=== PATIENT | female | born 1950 | race Caucasian/White ===

== ENCOUNTER 2017-04-27 10:20 | Day surgery (SDC) | payer MEDICARE ==
[~2017-04-27] VITALS: Ht 160 cm; Wt 85.0 kg
[~2017-04-27 10:20] MED LIST: COZA50TA PO; CYCL-36 PO; METH2.5 PO; PRED-1 PO; VITB12; ZOCO40TA PO
[2017-04-27 10:39] VITALS: BP 126/76; PULSE 87; RESP 20; TEMP 98.2; O2SAT 97
[2017-04-27] MEDS ORDERED: METH2.5T PO (10:42)
[2017-04-27] MEDS ORDERED: VITA100021 SL (10:42)
[2017-04-27] MEDS ORDERED: FOLI800T PO (10:42)
[2017-04-27] MEDS ORDERED: TYLE325T PO (10:42)
[2017-04-27] MEDS ORDERED: LOSA50TA PO (10:42)
[2017-04-27] MEDS ORDERED: ALPR0.5T3 PO (10:42)
[2017-04-27] MEDS ORDERED: SIMV40TA PO (10:42)
[2017-04-27] MEDS ORDERED: CHOL5000 PO (10:42)
[2017-04-27] MEDS ORDERED: PRED5TAB PO (10:42)
[2017-04-27] MEDS ORDERED: SODIUM CHLOR 0.9% 1000 ML IV SCH (10:45)
[2017-04-27] MEDS ORDERED: SODIUM CHLORIDE 2 ML FLUSH PRN IV FLUSH (10:45)
[2017-04-27 11:16] LABS: APTT (PATIENT) 22.4 SEC (24.3-30.1); INTERNATIONAL NORMALIZED RATIO 1.1 RATIO; PROTHROMBIN TIME - PATIENT 10.7 SEC (9.8-11.6)
[2017-04-27 11:20] LABS: AUTOMATED NEUTROPHIL # 4.1 TH/MM3 (1.8-7.7); BASOPHIL # 0.1 TH/MM3 (0-0.2); EOSINOPHIL # 0.1 TH/MM3 (0-0.4); EOSINOPHIL % 1.4 % (0.0-4.0); HEMATOCRIT 24.7 % (35.0-46.0); LYMPH % 26.4 % (9.0-44.0); LYMPHOCYTE # 1.7 TH/MM3 (1.0-4.8); MEAN CELL VOLUME 108.8 FL (80.0-100.0); MEAN CORPUSCULAR HEMOGLOBIN 40.1 PG (27.0-34.0); MONO % 8.9 % (0.0-8.0); NEUT % 62.3 % (16.0-70.0); PLATELET COUNT 314 TH/MM3 (150-450); RED BLOOD COUNT 2.27 MIL/MM3 (4.00-5.30); WHITE BLOOD COUNT 6.6 TH/MM3 (4.0-11.0)
[2017-04-27 11:21] LABS: HEMO FLAGS AUTO DIFF; MEAN CORPUSCULAR HGB CONC 36.8 % (32.0-36.0)
[2017-04-27 11:47] LABS: SCAN/DIFF AUTO DIFF CONFIRMED
[2017-04-27] MEDS ORDERED: LIDOCAINE 1%/EPINEPHrine 1:100,000 SOLN 20 ML VIAL ONE (13:01)
[2017-04-27] MEDS ORDERED: MIDAZOLAM HCL 2 MG/2 ML VIAL ONE (13:21)
[2017-04-27 14:50] VITALS: BP 103/52; PULSE 81; RESP 18; TEMP 98; O2SAT 93
[2017-04-27 15:05] VITALS: BP 107/55; PULSE 80; RESP 18; O2SAT 93
--- NOTE | 2017-04-27 15:08 | PD.RAD ---
Post CT Procedure Prog Note Pre Procedure Diagnosis: (1) Anemia Post Procedure Diagnosis: (1) Anemia Procedure Date: Apr 27, 2017 Supervising Radiologist: Randell ePng Anesthesia: Local, Analgesia, Conscious Sedation Plan of Activity Patient to Unit: ROPU Patient Condition: Good See PACS Report for procedural detail/treatment Biopsy Imaging Guidance: CT Biopsy Procedure: Bone Marrow Specimen: Core Biopsy, Fine Needle Aspirate Fluid Description: Randell Billy MD Apr 27, 2017 15:08
[2017-04-27] MEDS ORDERED: BUPIVACAINE/EPINEPHRINE 0.25% PF 30 ML VIAL ONE (15:16)
[2017-04-27] MEDS ORDERED: LIDOCAINE HCL 1% 50 ML VIAL ONE (15:17)
[2017-04-27 15:22] LABS: BONE MARROW PROCESSING COMPLETE; IRON STAIN DONE; JENNER GIEMSA STAIN DONE
[2017-04-27 15:35] VITALS: BP 104/57; PULSE 77; RESP 18; O2SAT 94
[2017-04-27 16:05] VITALS: BP 106/62; PULSE 83; RESP 18; O2SAT 97
--- NOTE | 2017-04-27 16:36 | RADRPT ---
EXAM DATE/TIME: 04/27/2017 13:59 [facility] COMPARISON: No previous studies available for comparison. INDICATIONS : Anemia. SEDATION TIME: 30 minutes BIOPSY SITE: Left iliac wing MEDICATION(S): 1.) 4 mg midazolam (Versed) IV 2.) 200 mcg fentanyl (Sublimaze) IV DEVICE(S): 1.) 11 gauge Bone marrow biopsy needle MEDICAL HISTORY : Rheumatoid arthritis. Hypertension. SURGICAL HISTORY : section. ENCOUNTER: Initial ACUITY: 1 day PAIN SCORE: 0/10 LOCATION: Bilateral pelvis A total of one core specimen(s) were obtained and sent to the laboratory for pathologic evaluation. PROCEDURE: 1. CT guided bone marrow biopsy. 2. Conscious sedation with continuous EKG and oximetry monitoring. 3. EKG and oximetry remained stable throughout the procedure. Prior to the procedure informed consent was obtained. Any appropriate prior imaging studies were rev iewed. Using automated exposure control and adjustment of the mA and/or kV according to patient size , radiation dose was kept as low as reasonably achievable to obtain optimal diagnostic quality images . DICOM format image data is available electronically for review and comparison. The site was prepped in a sterile fashion. Full sterile technique was used, including cap, mask, reginaldo rile gloves and gown and a large sterile sheet. Hand hygiene and 2% chlorhexidine and/or betadine/al cohol prep was utilized per protocol for cutaneous antisepsis. The skin and subcutaneous tissues wer e infiltrated with local anesthetic solution. With CT guidance the previously identified target was localized. Biopsy was performed using the presc ribed needle as above. Following biopsy marrow aspiration was performed with repeat puncture. Adequa te hemostasis was obtained with compression at the puncture site. Follow-up CT scan reveals no hemorrhage. Conscious sedation was performed with the prescribed dosages and duration as above in the presence of an independent trained radiology nurse to assist in the monitoring of the patient. EKG and oximetry remained stable throughout the procedure. The patient tolerated the procedure well and there were no complications. The patient was sent to Radiology Outpatient Unit in stable condition. CONCLUSION: 1. Uncomplicated CT guided bone marrow aspirate. 2. Uncomplicated CT guided bone marrow biopsy. Randell Peng MD on April 27, 2017 at 16:25 Board Certified Radiologist. This report was verified electronically.
[2017-04-27] MEDS ORDERED: SODIUM CHLORIDE 2 ML FLUSH BID IV FLUSH SCH (21:00)
== END 2017-04-27 16:35 | disposition home or self-care (01) ==
LOC: HRAD 10:20 → HRIP 10:24 → HRAD 16:35
PROVIDERS: ATTEND Internal Medicine Hematology
DX: D53.9 Nutritional anemia, unspecified (principal); M06.9 Rheumatoid arthritis, unspecified; I10 Essential (primary) hypertension; J18.9 Pneumonia, unspecified organism
CPT/HCPCS: 38221; 77012; 85025; 85097; 85610; 85730; 88184; 88185; 88237; 88264; 88280; 88305; 88311; 88313; 99152; 99153; C1830; G0364; J2250; J3010